=== PATIENT | male | born 2000 | race Hispanic/Latino ===

== ENCOUNTER 2023-06-19 17:39 | Emergency (ER) | payer OTHER ==
[~2023-06-19] VITALS: Ht 157.5 cm; Wt 90.7 kg
[2023-06-19 17:45] VITALS: BP 114/82; PULSE 114; RESP 18; TEMP 99; O2SAT 98
[2023-06-19] MEDS ORDERED: TORADOL IV STA (17:49)
[2023-06-19] MEDS ORDERED: TORADOL ONE (17:59)
[2023-06-19 18:09] VITALS: BP 128/78; PULSE 114; RESP 18; TEMP 99; O2SAT 98
[2023-06-19 19:00] VITALS: BP 147/94; PULSE 110; RESP 18; O2SAT 97
[2023-06-19 19:53] VITALS: BP 144/89; PULSE 100; RESP 18; O2SAT 96
== END 2023-06-19 19:54 | disposition home or self-care (01) ==
LOC: ER 17:39
DX: M79.18 Myalgia, other site (principal); V89.2XXA Person injured in unspecified motor-vehicle accident, traffic, initial encounter; Y93.89 Activity, other specified; Y92.410 Unspecified street and highway as the place of occurrence of the external cause; Y99.8 Other external cause status
CPT/HCPCS: 99285; 70450; 96374; 72125; 72128; 72131; J1885

== ENCOUNTER → 2023-06-20 | Outpatient (CLI) | payer SELFPAY | END | disposition home or self-care (01) | LOC: RAD 16:32 | PROVIDERS: ATTEND Chiropractor | DX: M54.2 Cervicalgia (principal); M54.50 Low back pain, unspecified | CPT/HCPCS: 72040; 72100 ==